=== PATIENT | male | born 1975 | race Hispanic/Latino ===

== ENCOUNTER 2024-04-30 14:26 | Emergency (ER) | payer OTHER ==
[~2024-04-30] VITALS: Ht 177.8 cm; Wt 140.6 kg
[2024-04-30 15:33] LABS: BASOPHILS # (AUTO) 0.03 K/uL (0.00-0.20); BASOPHILS % (AUTO) 0.4 % (0.0-5.0); EOSINOPHILS # (AUTO) 0.09 K/uL (0.00-0.70); EOSINOPHILS % (AUTO) 1.1 % (0.0-8.0); HEMATOCRIT 45.2 % (42-54); IMMATURE GRANULOCYTE ABSOLUTE 0.03 K/uL (0-1); LYMPHOCYTES # (AUTO) 1.5 K/uL (1.0-4.8); LYMPHOCYTES % (AUTO) 18.4 % (21.0-51.0); MEAN CORPUSCULAR HGB CONC 32.3 g/dL (32.0-36.0); MEAN CORPUSCULAR VOLUME 80.4 fL (79-99); MONOCYTES # (AUTO) 0.5 K/uL (0.1-1.0); MONOCYTES % (AUTO) 6.6 % (3.0-13.0); NEUTROPHILS # (AUTO) 5.8 K/uL (1.8-7.7); NEUTROPHILS % (AUTO) 73.1 % (40.0-77.0); PLATELET COUNT (AUTO) 290 K/uL (130-400); RED BLOOD CELL COUNT(AUTO) 5.62 MIL/uL (4.50-6.20); RED CELL DISTRIBUTION WIDTH 14.7 % (11.0-15.5); WHITE BLOOD COUNT (AUTO) 7.9 K/uL (4.8-10.8)
[2024-04-30] MEDS: KETOROLAC 30MG VIAL (30MG/ML) IVP ONE (15:34)
[2024-04-30] MEDS: SOLU-MEDROL 125MG VIAL IVP ONE (15:34)
[2024-04-30 15:47] LABS: CREATININE 1.1 mg/dL (0.5-1.3); POTASSIUM 3.8 mmol/L (3.5-5.1)
[2024-04-30 15:52] LABS: BILIRUBIN,TOTAL 0.4 mg/dL (0.2-1.0); TOTAL PROTEIN, SERUM 7.6 g/dL (6.0-8.3); URIC ACID 7.8 mg/dL (2.6-7.2)
[2024-04-30] MEDS ORDERED: IOHEXOL 350 MG/ML 100ML INFUS..BTL IV ONE (16:46)
[2024-04-30] MEDS ORDERED: COLC0.6C3 PO (17:30)
[2024-04-30 18:28] VITALS: BP 156/97; PULSE 85; RESP 19; O2SAT 97
== END 2024-04-30 18:46 | disposition home or self-care (01) ==
LOC: EDH 14:26
DX: M10.9 Gout, unspecified (principal); R07.89 Other chest pain; E83.51 Hypocalcemia
CPT/HCPCS: 99285; 96374; 71270; 71045; 96375; 84484; 84550; 80053; 85025; 85378; 36415; 93005; J2919; J1885; Q9967